=== PATIENT | male | born 1980 | race Caucasian/White ===

== ENCOUNTER 2023-04-01 19:32 | Emergency (ER) | payer SELFPAY ==
[2023-04-01 19:41] VITALS: BP 139/97; PULSE 99; RESP 16; TEMP 36.6; O2SAT 92; BMI 30.1
[2023-04-01] MEDS: sodium chloride 0.9% 1,000 ML 999 ML IV (20:05)
[2023-04-01 20:06] LABS: Basophils # 0.1 10^3/uL (0.0-0.1); Basophils % 1.6 %; Eosinophils # 0.1 10^3/uL (0.0-0.8); Eosinophils % 1.1 %; Hematocrit 47.2 % (37-53); Lymphocytes # 2.5 10^3/uL (0.8-4.8); Lymphocytes % 40.1 %; Mean Corpuscular HGB Conc 34.3 g/dL (30-55); Mean Corpuscular Hemoglobin 30.2 pg (27-33); Mean Corpuscular Volume 88.1 fl (82-101); Mean Platelet Volume 9.4 fL (7.4-10.4); Monocytes # 0.4 10^3/uL (0.2-0.9); Neutrophils # 3.12 10^3/uL (1.8-7.7); Neutrophils % 50.9 %; Nucleated Red Blood Cells % 0 %; Platelet Count 311 10^3/cmm (157-399); Red Blood Count 5.36 10^6/uL (3.85-5.65); Red Cell Distribution Width 14.3 % (12.1-15.1); White Blood Count 6.14 10^3/uL (3.29-11.43)
[2023-04-01] MEDS: multivitamin therapeutic Tablet 1 TAB PO (20:08)
--- NOTE | 2023-04-01 20:09 | ED_ITS ---
HPI - Alcohol General: Chief Complaint: Alcohol Stated Complaint: mhe, alcohol Time Seen by Provider: 04/01/23 19:41 Source: patient Mode of arrival: ambulatory Limitations: no limitations History of Present Illness: 42-year-old male has a history of alcoholism he states that he drinks daily states that over the last 3 days he is states he is just felt off history is difficult he states he just had a hard time focusing his concern is going withdrawals his last drink was 2 hours ago he denies suicidal or homicidal denies hearing or seeing anything. Denies headache or pain anywhere. Associated symptoms: Deny abdominal pain, nausea, suicidal ideation or vomiting Review of Systems Const: Denies: fever(s) or chills Eyes: Denies: blurry vision or eye discomfort ENMT: Denies: throat pain or dental pain Card: Denies: chest pain Resp: Denies: dyspnea GI: Denies: abdominal pain, nausea, vomiting or diarrhea Musc: Denies: neck pain or back pain Skin/Breast: Denies: rash Neuro: Denies: headache(s) Psych: Denies: suicidal ideation or homicidal ideation Physical Exam Const: COMMON NORMALS: no acute distress, patient oriented x3 and healthy appearing HENMT: COMMON NORMALS: normocephalic and atraumatic HEAD & SCALP: normocephalic and atraumatic Eye: COMMON NORMALS: Equal, round and reactive pupils present PUPIL: Yes Equal, round and reactive pupils present Neck/C-Spine: COMMON NORMALS: full ROM and supple Chest: COMMONS NORMALS: normal inspection of the chest and normal palpation of entire chest wall Resp: COMMON NORMALS: normal respiratory effort, No retractions, No use of accessory muscles and clear to auscultation bilaterally AUSCULTATION: clear to auscultation bilaterally Cardio: COMMON NORMALS: regular rate, regular rhythm and No murmurs present (Cardio) RATE: regular rate RHYTHM: regular rhythm GI: COMMON NORMALS: Normal to inspection, nondistended, normoactive bowel sounds present, Soft to palpation, non-tender and no masses PALPATION: Yes Soft to palpation Extremity: COMMON NORMALS: normal to inspection and full ROM Neuro: COMMON NORMALS: patient oriented x3, moves all extremities and no focal motor deficits Psych: COMMON NORMALS: mental status grossly normal, Normal thought process present and cooperative THOUGHT PROCESS: Normal thought process present Skin: COMMON NORMALS: no rashes or lesions noted and no wounds GENERAL SKIN EXAM: no rashes or lesions noted Course Vital Signs: Vital signs: Vital Signs Temperature 97.9 F 04/01/23 19:41 Pulse Rate 99 04/01/23 20:22 Respiratory Rate 16 04/01/23 19:41 Blood Pressure 147/94 04/01/23 20:22 Pulse Oximetry 96 04/01/23 20:22 Oxygen Delivery Me thod Room Air 04/01/23 20:22 MDM - Alcohol Medical Decision Making Patient presents here with alcohol intoxication blood work is otherwise normal we will get him information for [facility] he is not suicidal not homicidal he is stable for discharge. He has no focal deficits. Medical Records I reviewed the patient's medical records. Lab Data I reviewed the patient's lab results. 04/01/23 19:56 04/01/23 19:56 Laboratory Results WBC 6.14 10^3/uL (3.29-11.43) 04/01/23 19:56 RBC 5.36 10^6/uL (3.85-5.65) 04/01/23 19:56 Hgb 16.20 g/dL (11.27-16.99) 04/01/23 19:56 Hct 47.2 % (37-53) 04/01/23 19:56 MCV 88.1 fl (82-101) 04/01/23 19:56 MCH 30.2 pg (27-33) 04/01/23 19:56 MCHC 34.3 g/dL (30-55) 04/01/23 19:56 RDW 14.3 % (12.1-15.1) 04/01/23 19:56 Plt Count 311 10^3/cmm (157-399) 04/01/23 19:56 MPV 9.4 fL (7.4-10.4) 04/01/23 19:56 Neut % (Auto) 50.9 % 04/01/23 19:56 Lymph % (Auto) 40.1 % 04/01/23 19:56 [place] % (Auto) 6.0 % 04/01/23 19:56 Eos % (Auto) 1.1 % 04/01/23 19:56 Baso % (Auto) 1.6 % 04/01/23 19:56 Neut # (Auto) 3.12 10^3/uL (1.8-7.7) 04/01/23 19:56 Lymph # (Auto) 2.5 10^3/uL (0.8-4.8) 04/01/23 19:56 [place] # (Auto) 0.4 10^3/uL (0.2-0.9) 04/01/23 19:56 Eos # (Auto) 0.1 10^3/uL (0.0-0.8) 04/01/23 19:56 Baso # (Auto) 0.1 10^3/uL (0.0-0.1) 04/01/23 19:56 Nucleated RBC % (auto) 0 % 04/01/23 19:56 Nucleated RBCs # 0.0 /100WBC 04/01/23 19:56 Sodium 142 mmol/L (136-145) 04/01/23 19:56 Potassium 3.8 mmol/L (3.5-5.1) 04/01/23 19:56 Chloride 104 mmol/L (98-107) 04/01/23 19:56 Carbon Dioxide 21 mmol/L (22-29) L 04/01/23 19:56 Anion Gap 20.8 (5-19) H 04/01/23 19:56 BUN 7 mg/dL (6-20) 04/01/23 19:56 Creatinine 1.1 mg/dL (0.7-1.2) 04/01/23 19:56 GFR Calculation 74.1 mL/min (90-130) L 04/01/23 19:56 Glucose 96 mg/dL (65-115) 04/01/23 19:56 Calculated Osmolality 292 mOsm/kg (285-295) 04/01/23 19:56 Calcium 8.7 mg/dL (8.5-10.5) 04/01/23 19:56 Total Bilirubin 0.5 mg/dL (0.15-1.2) 04/01/23 19:56 AST 29 U/L (0-40) 04/01/23 19:56 ALT 34 U/L (0-41) 04/01/23 19:56 Alkaline Phosphatase 49 U/L (40-130) 04/01/23 19:56 Total Protein 7.3 g/dL (6.6-8.7) 04/01/23 19:56 Albumin 4.7 g/dL (3.5-5.2) 04/01/23 19:56 Globulin 2.6 g/dL (1.3-4.6) 04/01/23 19:56 Ethyl Alcohol 343 mg/dL (0-10) H* 04/01/23 19:56 No radiology studies performed this visit Discharge Plan Discharge Patient Disposition: Home Clinical Impression: Alcoholic intoxication Condition: Stable Prescriptions: No Action Testone Lunesta minoxidil Discharge Orders: Discharge ED (Routine); Ordered 04/01/23 Ordered By: Hu Dickson Discharge Diet: Advance as tolerated Discharge Activity: Resume usual activity Patient Instructions: Alcohol Intoxication (ED) Coding Level of Care Code ED Cellophane Tester for Marily Owens
[2023-04-01 20:22] VITALS: BP 147/94; PULSE 99; O2SAT 96
[2023-04-01 20:29] LABS: Alanine Aminotransferase 34 U/L (0-41); Albumin Level 4.7 g/dL (3.5-5.2); Alkaline Phosphatase 49 U/L (40-130); Anion Gap 20.8 (5-19); Aspartate Amino Transferase 29 U/L (0-40); Blood Urea Nitrogen 7 mg/dL (6-20); Calcium 8.7 mg/dL (8.5-10.5); Carbon Dioxide 21 mmol/L (22-29); Chloride 104 mmol/L (98-107); Globulin 2.6 g/dL (1.3-4.6); Glomerular Filtration Rate 74.1 mL/min (90-130); Glucose 96 mg/dL (65-115); Osmolality Calculated 292 mOsm/kg (285-295); Potassium 3.8 mmol/L (3.5-5.1); Sodium 142 mmol/L (136-145); Total Bilirubin 0.5 mg/dL (0.15-1.2); Total Protein 7.3 g/dL (6.6-8.7)
[2023-04-01 20:34] LABS: Alcohol Level 343 mg/dL (0-10)
== END 2023-04-01 20:52 | disposition home or self-care (01) ==
PROVIDERS: Emergency Provider Emergency Medicine
DX: F10.129 Alcohol abuse with intoxication, unspecified (principal); Y90.8 Blood alcohol level of 240 mg/100 ml or more
CPT/HCPCS: 36415; 80053; 80307; 85025; 96374; 99284; J3411; J7030